=== PATIENT | female | born 1960 | race Caucasian/White ===

== ENCOUNTER 2022-08-27 09:33 | Outpatient (REF) | payer OTHER, SELFPAY ==
[2022-08-27 16:08] LABS: MANUAL DIFF FLAG NO
[2022-08-27 16:10] LABS: Basophils Absolute Auto 0.1 X10*3/uL (0.0-0.2); Basophils Percent Auto 0.8 % (0-2); Eosinophils Absolute Auto 0.2 X10*3/uL (0.0-0.4); Eosinophils Percent Auto 3.4 % (0-4); Hematocrit 39.7 % (37.0-47.0); Imm Gran Abs Auto 0.01 X10*3/uL (0.00-0.03); Imm Gran Pct Auto 0.2 % (0.0-0.4); Lymphocytes Absolute Auto 1.9 X10*3/uL (1.2-4.9); Lymphocytes Percent Auto 32.6 % (20-40); Mean Corpuscular HGB Conc 32.7 g/dl (31.0-35.0); Mean Corpuscular Hemoglobin 31.9 pg (27.0-33.0); Mean Corpuscular Volume 97.3 fL (80.0-98.0); Mean Platelet Volume 9.8 fL (9.4-12.3); Monocytes Absolute Auto 0.5 X10*3/uL (0.1-1.2); Monocytes Percent Auto 8.3 % (2-11); Neutrophils Absolute Auto 3.2 x10*3/uL (2.0-8.3); Neutrophils Percent Auto 54.7 % (45-73); Platelet Count 254 X10*3/uL (160-400); Red Blood Count 4.08 X10*6/uL (4.20-5.50); Red Cell Distribution Width 13.1 % (11.0-16.0); White Blood Count 5.9 X10*3/uL (4.8-10.8)
[2022-08-27 16:19] LABS: INTERNATIONAL NORM RATIO 1.1 (0.9-1.1); Prothrombin Time 12.1 SEC (10.0-13.1)
[2022-08-27 16:50] LABS: Alanine Aminotransferase 27 U/L (0-31); Albumin Level 4.8 g/dL (3.5-5.0); Alkaline Phosphatase 92 U/L (39-117); Anion Gap 13 (12-20); Aspartate Amino Transferase 23 U/L (5-31); Bilirubin Total 0.6 mg/dL (0.0-1.0); Blood Urea Nitrogen 20 mg/dL (9-16); C Reactive Protein < 0.10 mg/dL (< or = 0.50); Calcium 9.9 mg/dL (8.4-10.2); Carbon Dioxide 28 mmol/L (22-29); Chloride 104 mmol/L (96-108); Estimated Glomerular Filt Rate > 60; Ferritin 181 ng/mL (10-250); Glucose Random 98 mg/dL (60-115); Iron 60 mcg/dL (30-160); Percent Iron Saturation 22 % (15-50); Potassium 4.1 mmol/L (3.3-5.1); Sodium 141 mmol/L (135-145); TSH reflex Free T4 1.01 uIU/mL (0.32-4.0); Total Iron Binding Capacity 271 mcg/dL (228-428); Total Protein 7.5 g/dL (6.5-8.0); Unsaturated Iron Binding 211 ug/dL; Vitamin D 25-OH Total 89.1 ng/mL (>30)
[2022-08-27 17:02] LABS: Erythrocyte Sedimentation Rate 8 MM/HR (0-20)
[2022-08-27 17:05] LABS: Folate 17.7 ng/mL (> or = 4.0); Vitamin B12 1370 pg/mL (200-900)
[2022-08-28 10:37] LABS: Triiodothyronine T3 Free 3.2 pg/mL (2.3-4.2)
[2022-08-28 11:33] LABS: Immunoglobulin G 1134 mg/dL (600-1540)
[2022-08-30 22:19] LABS: Smooth Muscle Antibody <20 U (<20)
[2022-08-31 11:44] LABS: Alpha 1 Anti-trypsin 187 mg/dL (83-199)
[2022-08-31 15:23] LABS: Anti Nuclear Antibody Screen NEGATIVE (NEGATIVE)
[2022-08-31 23:03] LABS: Liver Kidney Microsomal Ab <=20.0 U (<=20.0)
[2022-09-01 01:39] LABS: Vitamin C 1.6 mg/dL (0.3-2.7)
[2022-09-01 04:39] LABS: Triiodothyronine T3 Reverse 12 ng/dL (8-25)
[2022-09-01 11:51] LABS: HBS Num1 60.85 mIU/mL (0-7.99); HBsAGNum1 0.54 S/CO (0.00-0.99); Hepatitis A Antibody IgM 0.14 Index (0-0.79); Hepatitis B Core Antibody Nonreactive (Nonreactive); Hepatitis B Surface Antigen Negative (Negative); ~HepC Num1 0.27 S/CO (0.00-0.79); ~Hepatitis A Antibody IgM Nonreactive (Nonreactive); ~Hepatitis B Surface Antibody REACTIVE (Nonreactive); ~Hepatitis C Antibody Nonreactive (Nonreactive)
[2022-09-01 13:33] LABS: Vitamin B1 47 nmol/L (8-30)
[2022-09-01 14:43] LABS: Vitamin B6 151.8 ng/mL (2.1-21.7)
[2022-09-01 16:13] LABS: Zinc 59 mcg/dL (60-130)
[2022-09-01 17:33] LABS: Alpha-Tocopherol 18.1 mg/L (5.7-19.9); Beta-Gamma Tocopherol <1.0 mg/L (<=4.3)
[2022-09-01 22:09] LABS: Soluble Liver Ag Autoantibody <20.1 U (0.0-20.0)
[2022-09-01 23:08] LABS: Nicotinamide <20 ng/mL; Vit B3 - Nicotinic Acid <20 ng/mL
[2022-09-01 23:28] LABS: Vitamin A 53 mcg/dL (38-98)
[2022-09-02 16:03] LABS: Transglutaminase Ab IgG <1.0 U/mL; Transglutaminase IgA <1.0 U/mL
[2022-09-03 06:03] LABS: Mitochondrial Antibodies NEGATIVE (NEGATIVE)
[2022-09-03 13:43] LABS: Vitamin K1 703 pg/mL (130-1500)
[2022-09-03 16:23] LABS: Histamine Plasma <1.5 ng/mL (< OR = 1.8)
[2022-09-03 22:28] LABS: Vitamin B5 (Pantothenic Acid) 410 ng/mL (<275)
== END 2022-08-27 09:34 | disposition home or self-care (01) ==
LOC: HO.LAB 09:33
PROVIDERS: PCP Registered Nurse; Visit Provider Internal Medicine Gastroenterology
DX: K75.81 Nonalcoholic steatohepatitis (NASH) (principal); K40.90 Unilateral inguinal hernia, without obstruction or gangrene, not specified as recurrent; R10.33 Periumbilical pain; R19.7 Diarrhea, unspecified; R63.0 Anorexia; R63.4 Abnormal weight loss; R79.89 Other specified abnormal findings of blood chemistry; R79.82 Elevated C-reactive protein (CRP); K52.839 Microscopic colitis, unspecified; G89.29 Other chronic pain
CPT/HCPCS: 36415; 80053; 82103; 82180; 82306; 82550; 82607; 82728; 82746; 82784; 83088; 83520; 83540; 84207; 84425; 84443; 84446; 84481; 84482; 84590; 84591; 84597; 84630; 85025; 85610; 85652; 86015; 86038; 86039; 86140; 86255; 86256; 86364; 86376; 86704; 86706; 86709; 86803; 87340

== ENCOUNTER 2022-09-17 08:57 | Outpatient (REF) | payer OTHER, SELFPAY ==
--- NOTE | ~2022-09-17 | US_ITS ---
EXAMINATION: US ABDOMEN COMPLETE CLINICAL INFORMATION: Other specified abnormal findings of blood chemistry. COMPARISON: None TECHNIQUE: Real-time imaging of the abdominal viscera. FINDINGS: PANCREAS: Normal. ABDOMINAL AORTA: The proximal, mid, and distal segments are normal in caliber. INFERIOR VENA CAVA: Visualized portions are normal. LIVER: Normal. The liver is normal in size. The liver contour is normal. Parenchymal echogenicity is normal. No focal hepatic lesion. There is no intrahepatic biliary duct dilatation seen. GALLBLADDER: There are gallstones and biliary sludge. The gallbladder is physiologically distended without evidence of polyps, wall thickening or pericholecystic fluid. COMMON BILE DUCT: Normal in caliber measuring 0.42 cm in diameter. RIGHT KIDNEY: Normal. No hydronephrosis. No renal calculi or focal parenchymal lesions. The kidney measures 11.6 cm in maximum dimension. LEFT KIDNEY: Normal. No hydronephrosis. No renal calculi or focal parenchymal lesions. The kidney measures 9.9 cm in maximum dimension. SPLEEN: Normal. The spleen measures 8.9 cm in maximum dimension. FREE FLUID: None. US/US abdomen complete IMPRESSION: Cholelithiasis and biliary sludge are seen. There is no finding to suggest cholecystitis or choledocholithiasis. The examination is otherwise unremarkable.
== END 2022-09-17 08:58 | disposition home or self-care (01) ==
LOC: HO.HMGCX 08:57
PROVIDERS: PCP Registered Nurse; Visit Provider Internal Medicine Gastroenterology
DX: R79.89 Other specified abnormal findings of blood chemistry (principal); R63.4 Abnormal weight loss; R63.0 Anorexia
CPT/HCPCS: 76700

== ENCOUNTER 2022-10-26 11:27 | Day surgery (SDC) | payer OTHER, SELFPAY ==
--- NOTE | 2022-10-26 11:32 | MHC.SHP ---
Pre-Procedural Eval Section A Date of Service: 10/26/22 Section B Chief Complaint: Abnormal weight loss,abnormal findings Details of Present Illness: mum had pancreatic cancer aged 78 -dad with diverticulosis Relevant Family History (Specify if Yes): Yes Relevant Social History: None Present Medications: see Short Stay Collaborative assessment Medical History: Significant History (osteopenia, ovarian cyst, tubular adenoma) History of Previous Operations: Relevant previous surgery/procedure and date(s) (inguinal hernia repair, colonoscopy) Allergies: Allergies Allergy/AdvReac Type Severity Reaction Status Date / Time No Known Allergies Allergy Verified 08/27/22 09:37 Review of Systems Sugical H&P ROS: Negative: Constitution, Cardiovascular, Respiratory, Neurological, Psychiatric, Hem-Onc, Allergic/Immunologic, Gastrointestinal, Genitourinary, Musculoskeletal, Integumentary, Endocrine and Eyes/Ears/Nose/Throat Exam Surgical H&P Exam: Normal: HEENT, Normal: Heart, Normal: Lungs, Normal: Extremities, Normal: Abdomen, Normal: Skin and Normal: Neurological Plan Diagnosis/Plan: Unchanged I have reviewed the history and physical and performed a pertinent physical examination on my patient. No changes have occurred unless specified. Time Spent With Patient Time: Total time managing care of this patient today ____ minutes.
[2022-10-26 11:37] VITALS: BP 113/70; PULSE 63; RESP 18; TEMP 36.8; O2SAT 98; BMI 19.3
--- NOTE | 2022-10-26 12:25 | W.PM.OPN ---
Operative Note Operative Note Date of Service: 10/26/22 Narrative: Operative Information Procedure Description: Colonoscopy Indication: weight loss Anesthesia: MAC COLONOSCOPY Instrument: Olympus variable stiffness pediatric scope 190L Colonoscopy Monitoring: Vital signs and clinical assessment, continuous EKG monitoring, Pulse oximetry, Carbon Dioxide monitoring and blood pressure monitoring were done throughout the procedure. Colon withdrawal time was 8 minutes. Procedure: The patient was placed in the left lateral decubitis position and pre-procedure medications were administered. After a digital rectal examination of the ano-rectum, the video colonoscope was inserted into the rectum and advanced through the colon to the cecum/TI. The colonoscope was slowly withdrawn in a retrograde panoramic fashion and the colon mucosa was carefully examined including a retroflexed view of the rectum. Findings and interventions are described below. Procedure Difficulty: moderate, redundant and tortuous colon Findings: Terminal Ileum-normal, bx taken random colo bx taken, melanosis coli noted Cecum:normal Ascending Colon: normal Transverse Colon -normal Descending Colon:normal Sigmoid Colon: normal Rectum: Retroflexion with small internal hemorrhoids, grade I Anorectum - normal Colon preparation: [place] Bowel Preparation Scale Right colon; 2 Transverse colon: 3 Left colon; 3 (0 = Unprepared colon segment with mucosa not seen due to solid stool that cannot be cleared. 1 = Portion of mucosa of the colon segment seen, but other areas of the colon segment not well seen due to staining, residual stool and/or opaque liquid. 2 = Minor amount of residual staining, small fragments of stool and/or opaque liquid, but mucosa of colon segment seen well. 3 = Entire mucosa of colon segment seen well with no residual staining, small fragments of stool or opaque liquid) Impression and Post Procedure Diagnosis: melanosis coli internal hemorrhoids redundant colon Plan: High fiber diet leaflet Avoid straining at stool, epsom salts and sitz bath, anusol supps or cream Repeat Colonoscopy in 10 years or earlier if clinically indicated she will discuss with Dr Patten about cholecystectomy as she is having symptomatic gallstones which maybe causing her weight loss Above findings were reviewed with the patient and relevant handouts were provided if indicated.
[2022-10-26 12:34] VITALS: BP 83/52; PULSE 60; RESP 14; TEMP 36.3; O2SAT 99
[2022-10-26 12:39] VITALS: BP 89/59
[2022-10-26 12:44] VITALS: BP 92/58
[2022-10-26 12:49] VITALS: BP 103/64; PULSE 55; RESP 16; TEMP 36.3; O2SAT 100
== END 2022-10-26 14:20 | disposition home or self-care (01) ==
PROVIDERS: PCP Registered Nurse; Visit Provider Internal Medicine Gastroenterology
PROC: 0DJD8ZZ Inspection of Lower Intestinal Tract, Via Natural or Artificial Opening Endoscopic (ICD-10-PCS; CPT 45378; principal; 2022-10-26 12:40)
DX: R63.4 Abnormal weight loss (principal); Z86.010 Personal history of colon polyps; K63.89 Other specified diseases of intestine; K64.0 First degree hemorrhoids; R79.89 Other specified abnormal findings of blood chemistry; R63.0 Anorexia; K75.81 Nonalcoholic steatohepatitis (NASH); K40.90 Unilateral inguinal hernia, without obstruction or gangrene, not specified as recurrent; K80.20 Calculus of gallbladder without cholecystitis without obstruction; R79.82 Elevated C-reactive protein (CRP); Q43.8 Other specified congenital malformations of intestine; M85.80 Other specified disorders of bone density and structure, unspecified site; N83.209 Unspecified ovarian cyst, unspecified side; Z68.20 Body mass index [BMI] 20.0-20.9, adult
CPT/HCPCS: 45380; 88305

== ENCOUNTER → 2022-11-15 09:50 | Outpatient (BNVA) | payer OTHER, SELFPAY | PROVIDERS: PCP Registered Nurse; Referring Provider Internal Medicine Gastroenterology; Visit Provider Surgery | DX: K40.90 Unilateral inguinal hernia, without obstruction or gangrene, not specified as recurrent (principal); K80.20 Calculus of gallbladder without cholecystitis without obstruction | CPT/HCPCS: 99202 ==